=== PATIENT | male | born 1935 | race Caucasian/White ===

== ENCOUNTER 2016-11-27 21:35 | Inpatient (IN) | payer MEDICARE, MEDICAID ==
[2016-11-27] MEDS ORDERED: Albuterol/Ipratropium Neb 3 ML AERS HHN ONE ×2 (21:47→22:01)
--- NOTE | 2016-11-27 21:47 | ED Physician Chart ---
Chief Complaint/HPI - Patient Information Date Seen:: 11/27/16 Time Seen:: 21:41 Chief Complaint:: alt ms History of Present Illness:: pt sent from [place] for generalized weakness //"not feeling well" //decreased fxn.. uti shown on outpt labs. pt admits he has had a cough x 2 months which is prod of some yellow sputum. intermittent fever x weeks. no edema. no cp. no abd p. no ZAMBRANO. no acute neuro change. pt is alert and talking. Allergies:: Allergies Allergy/AdvReac Type Severity Reaction Status Date / Time No Known Allergies Allergy Verified 11/27/16 21:38 Historian:: Patient Review of Systems - Review of Systems General/Constitutional: Fever (??), No fever, No chills, No weight loss, No weakness, No diaphoresis, No edema, No loss of appetite Skin: No skin lesions, No rash, No bruising Head: No headache, No light-headedness Eyes: No loss of vision, No pain, No diplopia ENT: No earache, No nasal drainage, No sore throat, No tinnitus Neck: No neck pain, No swelling, No thyromegaly, No stiffness, No mass noted Cardio Vascular: No chest pain, No palpitations, No PND, No orthopnea, No edema Pulmonary: No SOB, Cough, Sputum, Wheezing GI: No nausea, No vomiting, No diarrhea, No pain, No melena, No hematochezia, No constipation, No hematemesis G/U: Dysuria (?), No dysuria, No frequency, No hematuria Musculoskeletal: No bone or joint pain, No back pain, No muscle pain Endocrine: No polyuria, No polydipsia Psychiatric: No prior psych history, No depression, No anxiety, No suicidal ideation Hematopoietic: No bruising, No lymphadenopathy Allergic/Immuno: No urticaria, No angioedema Neurological: No syncope, No focal symptoms, No weakness, No paresthesia, No headache, No seizure, No dizziness, No confusion, No vertigo Past Medical History - Past Medical History Past Medical History: HTN, DM, CAD, Asthma/COPD, Dyslipidemia, PUD/GERD, Dementia, Other (bph, afib, ckd) Social History: Care Facility Psychiatricy History: Depression, Dementia, Other (anxiety) Medication: Reviewed Family Medical History - Family Member Mother History Unknown: Yes Physical Exam - Physical Examination General/Constitutional: Awake, Well-developed, well-nourished, Alert, No distress, GCS 15, Non-toxic appearing, Ambulatory Other Gen/Cons comments:: alert, talking, nad. not great historian...is disoriented to place. no resp distress. alert/nontoxic. no brandi neuro defecit. abd nt. audible junky intermittent cough. no sob at rest. nonlabored breathing. no edema. Head: Atraumatic Eyes: Lids, conjuctiva normal, PERRL, EOMI Skin: Nl inspection, No rash, No skin lesions, No ecchymosis, Well hydrated, No lymphadenopathy ENMT: External ears, nose nl, Nasal exam nl, Lips, teeth, gums nl Neck: Nontender, Full ROM w/o pain, No JVD, No nuchal rigidity, No bruit, No mass, No stridor Respiratory: Nl effort/Exclusion, Clear to Auscultation, No Wheeze/Rhonchi/Rales Other Respiratory comments:: ronchi. cough. mild wheeze. Cardio Vascular: RRR, No murmur, gallop, rubs, NL S1 S2 GI: No tenderness/rebounding/guarding, No organomegaly, No hernia, Normal BS's, Nondistended, No mass/bruits, No McBurney tenderness : No CVA tenderness Extremities: No tenderness or effusion, Full ROM, normal strength in all extremities, No edema, Normal digits & nails Neuro/Psych: Alert/oriented, DTR's symmetric, Normal sensory exam, Normal motor strength, Judgement/insight normal, Mood normal, Normal gait, No focal deficits Misc: normal gait, Normal back, No paraspinal tenderness Labs/Radiology/EKG Results - Lab Results Results: Laboratory Tests 11/27/16 11/27/16 11/27/16 21:59 21:59 21:59 WBC 10.1 RBC 4.45 Hgb 13.5 Hct 40.2 MCV 90.5 MCH 30.3 MCHC Differential 33.5 RDW 13.0 Plt Count 227 MPV 6.8 Neutrophils % 68.6 Lymphocytes % 21.9 Monocytes % 3.3 Eosinophils % 5.8 H Basophils % 0.4 Sodium 136 Potassium 3.9 Chloride 105 Carbon Dioxide 26.6 Anion Gap 8.3 BUN 18 Creatinine 1.9 H Est GFR ( Amer) TNP Est GFR (Non-Af Amer) TNP BUN/Creatinine Ratio 9.5 Glucose 248 H Whole Bld Lactic Acid 1.15 Calcium 8.9 Total Bilirubin 0.4 AST 12 L ALT 3 L Alkaline Phosphatase 78 Troponin I Total Protein 6.4 Albumin 3.0 L Globulin 3.4 Albumin/Globulin Ratio 0.9 L Urine Source Urine Color Urine Clarity Urine pH Ur Specific [place] Urine Protein Urine Glucose (UA) Urine Ketones Urine Blood Urine Nitrate Urine Bilirubin Urine Urobilinogen Ur Leukocyte Esterase Urine RBC Urine WBC Ur Epithelial Cells Urine Bacteria 11/27/16 11/27/16 21:59 22:15 WBC RBC Hgb Hct MCV MCH MCHC Differential RDW Plt Count MPV Neutrophils % Lymphocytes % Monocytes % Eosinophils % Basophils % Sodium Potassium Chloride Carbon Dioxide Anion Gap BUN Creatinine Est GFR ( Amer) Est GFR (Non-Af Amer) BUN/Creatinine Ratio Glucose Whole Bld Lactic Acid Calcium Total Bilirubin AST ALT Alkaline Phosphatase Troponin I 0.05 Total Protein Albumin Globulin Albumin/Globulin Ratio Urine Source CLEAN C Urine Color YELLOW Urine Clarity SLIGHT CLOUDY Urine pH 6.5 Ur Specific [place] 1.020 Urine Protein >=300 Urine Glucose (UA) 250 H Urine Ketones NEGATIVE Urine Blood MODERATE H Urine Nitrate NEGATIVE Urine Bilirubin NEGATIVE Urine Urobilinogen 0.2 Ur Leukocyte Esterase NEGATIVE Urine RBC 2-5 H Urine WBC 10-25 H Ur Epithelial Cells MODERATE Urine Bacteria MODERATE - Radiology Results Results: cxr nad- left base is indistinct..could represent fat pad or infiltrate - EKG Interpretations EKG Time:: 21:50 Rate & Rhythm: nsr 67 [place]: 84 Intervals: qtc 486 Comments:: rt bbb, long pr interval ..1st deg hrt block ED Septic Shock - . Is Septic Shock (SBP<90, OR Lactate>4 mmol\\L) present?: No Reassessment (Disposition) - Reassessment Reassessment:: call placed to PMD SABINE Coffey at 10;56pm case efraín Coffey at 11pm..is admitting. pt stable. levaquin agreed ok. u cx ordered. cxr efraín alexander pt cough has improved markedly s/p neb tx Reassessment Condition:: Improved - Diagnosis Diagnosis:: 1 failure to thrive 2 uti 3 possible pneumonia - Patient Disposition Admitted to:: Med/Surg Condition at Disposition:: Improved
[2016-11-27 22:07] LABS: % BASOPHILS 0.4 % (0.0-2.0); % EOSINOPHILS 5.8 % (0.0-5.0); % LYMPHOCYTES 21.9 % (20.0-50.0); % MONOCYTES 3.3 % (2.0-10.0); % NEUTROPHILS 68.6 % (40.0-80.0); HEMATOCRIT 40.2 % (39.0-49.0); HEMOGLOBIN 13.5 gm/dL (12.6-17.4); MEAN CELL VOLUME 90.5 fl (80-99); MEAN CORPUSCULAR HEMOGLOBIN 30.3 pg (27.0-31.0); MEAN CORPUSCULAR HGB CONC 33.5 pg (28.0-36.0); MEAN PLATELET VOLUME 6.8 fl; PLATELET COUNT 227 Th/cmm (150-400); RED BLOOD COUNT 4.45 Mil/cmm (3.80-5.80); WHITE BLOOD COUNT 10.1 Th/cmm (4.8-10.8)
[2016-11-27 22:29] LABS: POTASSIUM SERUM 3.9 mEq/L (3.5-5.1); SODIUM SERUM 136 mEq/L (136-145)
[2016-11-27 22:30] LABS: ALB/GLOB RATIO 0.9 (1.0-1.8); ANION GAP 8.3 (7.0-16.0); BILIRUBIN,TOTAL 0.4 mg/dL (0.3-1.0); BUN - UREA NITROGEN 18 mg/dL (7-25); BUN/CREATININE RATIO 9.5; CALCIUM SERUM 8.9 mg/dL (8.6-10.3); CARBON DIOXIDE 26.6 mEq/L (21.0-31.0); CHLORIDE 105 mEq/L (98-107); CREATININE - SERUM 1.9 mg/dL (0.7-1.3); GLUCOSE 248 mg/dL (70-105); SGOT 12 U/L (13-39)
[2016-11-27 22:31] LABS: ALKALINE PHOSPHATASE 78 U/L (34-104); SGPT/ALT 3 U/L (7-52)
[2016-11-27 22:49] LABS: URINE BILIRUBIN NEGATIVE (NEGATIVE); URINE BLOOD MODERATE (NEGATIVE); URINE GLUCOSE (UA) 250 mg/dL (NEGATIVE); URINE KETONE NEGATIVE (NEGATIVE); URINE PH 6.5 (4.6 - 8.0); URINE PROTEIN >=300 mg/dL (NEGATIVE); URINE UROBILINOGEN 0.2 E.U./dL (0.2 - 1.0)
[2016-11-27 22:52] LABS: URINE COLOR YELLOW
[2016-11-27 22:53] LABS: URINE BACTERIA MODERATE /hpf (NONE SEEN); URINE EPITHELIAL CELLS MODERATE /lpf (FEW)
[2016-11-27] MEDS ORDERED: Levofloxacin 500mg/100mL 500 MG/100 ML BAG IV ONE ×2 (22:59→23:10)
[2016-11-27] MEDS ORDERED: Sodium Chloride 0.9% 1,000 ML IV SCH (23:10)
[2016-11-28 03:11] VITALS: BP 148/80
[2016-11-28 06:19] LABS: % BASOPHILS 0.5 % (0.0-2.0); % EOSINOPHILS 6.7 % (0.0-5.0); % LYMPHOCYTES 20.1 % (20.0-50.0); % MONOCYTES 6.8 % (2.0-10.0); % NEUTROPHILS 65.9 % (40.0-80.0); HEMOGLOBIN 13.3 gm/dL (12.6-17.4); MEAN CORPUSCULAR HEMOGLOBIN 30.5 pg (27.0-31.0); MEAN CORPUSCULAR HGB CONC 34.2 pg (28.0-36.0); NEUTROPHILE ABSOLUTE 5.3 Th/cmm (1.8-8.0); PLATELET COUNT 212 Th/cmm (150-400); RED BLOOD COUNT 4.38 Mil/cmm (3.80-5.80); RED CELL DISTRIBUTION WIDTH 13.1 % (11.5-20.0)
[2016-11-28 06:20] LABS: WHITE BLOOD COUNT 7.9 Th/cmm (4.8-10.8)
[2016-11-28 06:31] LABS: ALB/GLOB RATIO 0.9 (1.0-1.8); ALKALINE PHOSPHATASE 78 U/L (34-104); ANION GAP 8.8 (7.0-16.0); BILIRUBIN,TOTAL 0.4 mg/dL (0.3-1.0); BUN - UREA NITROGEN 16 mg/dL (7-25); BUN/CREATININE RATIO 8.9; CALCIUM SERUM 8.9 mg/dL (8.6-10.3); CARBON DIOXIDE 28.1 mEq/L (21.0-31.0); CHLORIDE 104 mEq/L (98-107); CHOLESTEROL 144 mg/dL (<200); CREATININE - SERUM 1.8 mg/dL (0.7-1.3); GLUCOSE 323 mg/dL (70-105); POTASSIUM SERUM 3.9 mEq/L (3.5-5.1); SGOT 12 U/L (13-39); SGPT/ALT 3 U/L (7-52); SODIUM SERUM 137 mEq/L (136-145); TRIGLYCERIDES 212 mg/dL (<150)
[2016-11-28] MEDS: Albuterol/Ipratropium Neb 3 ML AERS HHN PRN ×3 (07:33→19:23)
[2016-11-28] MEDS: INSULIN ASPART SLIDING SCALE 100 UNITS/ML UNIT SUBQ SCH ×4 (08:00→20:56)
--- NOTE | 2016-11-28 08:42 | Diagnostic Imaging Report ---
Portable chest x-ray HISTORY: Cough The heart is enlarged. Atherosclerotic calcification seen in the aorta. There is a degree of pulmonary vascular redistribution that may reflect marginal cardiac decompensation. Slight haziness of the interstitial markings may reflect mild edema. No pleural fluid is evident. Degenerative changes seen to the spine. IMPRESSION: 1. Cardiomegaly with atherosclerotic vascular changes along with findings suggesting a mild degree of congestive heart failure. Clinical correlation is needed.
[2016-11-28] MEDS ORDERED: Magnesium Hydroxide (MOM) 30 mL UDC PO PRN (09:25)
[2016-11-28] MEDS ORDERED: Fleet Enema 135 mL RC PRN (09:25)
[2016-11-28] MEDS ORDERED: Albuterol/Ipratropium Neb 3 ML AERS HHN PRN (09:25)
[2016-11-28] MEDS ORDERED: Sodium Chloride 0.9% 1,000 ML IV SCH ×2 (09:35→09:47)
--- NOTE | 2016-11-28 11:51 | History & Physical ---
ADMIT DATE: 11/28/2016 REASON FOR ADMISSION: Urinary tract infection and pneumonia in this elderly gentlemen with a multitude of problems including BPH, dementia, arthritis, chronic pain syndrome, allergic rhinitis, diabetes, uncontrolled type 2, hypertension, atherosclerotic heart disease, hyperlipidemia. HISTORY OF PRESENT ILLNESS: An 81-year-old gentleman, resident of [facility], complaining of getting sick for past 3-4 weeks, mainly the cough, postnasal drip type of symptoms, but feeling quite sick and increasing pain in his both hands and pointing more on the right hand and feels neck pain, "I feel my neck is broken", also complaining of both foot pain. Upon presentation to the Emergency Room, the patient found to have creatinine of 1.9 with elevated glucose of 248 to 323 range with A1c of 9.7. Urinalysis revealed glucose 4+, ketones negative, and wbc's 10-25, rbc's 2-5, epithelial cells moderate. The patient had a chest x-ray which revealed question of pneumonia in the left base. The patient also complaining of cough with shortness of breath and denies any leg swelling or joint swelling. No rashes. Denies any burning in the extremities. The patient does have frequent fall history. ALLERGIES: None. PAST MEDICAL HISTORY: As mentioned above. MEDICATIONS: At the longterm facility includes ibuprofen 400 q. 8, acetaminophen 650 q. 6 p.r.n., tramadol 50 q. 6 p.r.n., DuoNeb handheld nebulizer q. 6 p.r.n., Norvasc 10 mg once a day, Lipitor 20 mg once a day, vitamin D 5000 units once a day, clonidine 0.1 mg q. 8 hours, Benadryl 25 q. 4 p.r.n., Colace 250 mg once a day, Fleets Enema every other day p.r.n., Neurontin 100 mg 3 times a day, Levemir 30 units subQ once a day, Accu-Chek sliding scale a.c. and at bedtime, Antivert 25 mg t.i.d. p.r.n., Maalox 30 mL q.i.d. p.r.n., milk of magnesia 30 mL at bedtime, Zantac 150 twice a day, Flomax 0.4 mg once a day, glucagon injection p.r.n. for hypoglycemia. SOCIAL HISTORY: No smoking. No alcohol. No substance abuse. FAMILY HISTORY: Noncontributory. REVIEW OF SYSTEMS: See the history of presenting illness. PHYSICAL EXAMINATION: VITAL SIGNS: Blood pressure is 147/59, pulse 64, respiratory rate is 17, and oxygen saturation 98%, temperature 98.4, height 1.8 m, weight 89.4 kg, BMI 27.5. HEENT: The patient's left eye is dry and ____ closed, but with help is able to open very easily, no conjunctivitis noted, pupils are equal. Mucosa is dry. NECK: Short and thick, currently on 2 L oxygen. LUNGS: Decreased air entry all over, but no rales or rhonchi.. CARDIOVASCULAR: S1, S2 normal limit. ABDOMEN: Soft, scaphoid and obese, no hepatosplenomegaly. No rebound, no guarding. No free fluid. No CVA tenderness. EXTREMITIES: Dorsalis pedis palpable. Capillary refill 2 seconds, onychomycosis noted on the big toes. No leg edema noted. CENTRAL NERVOUS SYSTEM: The patient's balance is poor, but cranial nerves intact, otherwise nonfocal. Able to move all extremities without difficulties. MUSCULOSKELETAL: No clubbing, cyanosis, or synovitis. LABORATORY TESTS: Significant for WBC on admission 10,000, repeat one is 7.9, hemoglobin is 13.3, MCV 89, platelet count of 212,000, and neutrophils of 65. Sodium 137, potassium 3.9, chloride 104, bicarb 28, BUN 16, creatinine 1.8, and glucose of 323, calcium level 8.9. Liver panel is essentially unremarkable. Troponin is negative on admission and cholesterol 144, HDL 36, LDL 81, and triglyceride is 212. TSH normal at 1.72, A1c elevated at 9.7. Urinalysis, pH 6.5, specific gravity 1.020, protein 4+, glucose, 4+ ketones negative, blood moderate, wbc's at 10-25, rbc's 2-5. Chest x-ray, cardiomegaly with atherosclerotic vascular changes along the vasculature, mild degree of congestive heart failure is noted. ASSESSMENT AND PLAN: 1. Urinary tract infection. 2. Pneumonia. 3. Congestive heart failure. 4. Hypertension. 5. Atherosclerotic heart disease. 6. Benign prostatic hyperplasia. 7. Hyperlipidemia. 8. Degenerative joint disease. 9. Chronic pain. 10. Benign prostatic hyperplasia with urinary incontinence. 11. Multiple falls. 12. Alzheimer's dementia. 13. Uncontrolled insulin-dependent diabetes mellitus, type 2. 14. Chronic kidney disease, stage III. PLAN: Do workup including CT chest, x-rays of the hand, C-spine, feet, and ultrasound of the kidney and bladder and continue with Levaquin. Monitor culture and adjust antibiotics. Fall precaution, PT eval. Echocardiogram, Cardiology consult. IV fluid as the patient ____ clinically and repeat chest x-rays if cough not improve. Continue hand held nebulizer and the patient's current medications from the home. See order for full detail. JOB# [id number]
[2016-11-28] MEDS ORDERED: Guaifenesin DM 10 ML UDC PO PRN (12:37)
--- NOTE | 2016-11-28 14:53 | Diagnostic Imaging Report ---
Right foot (3 views) HISTORY: Pain No definite acute bony abnormalities are seen. No definite fractures. Mild degenerative changes noted about the first metatarsal phalangeal joint. Surgical hardware noted within the distal fibula and tibia. Vascular calcification noted. IMPRESSION: 1. No definite acute bony abnormalities 2. Degenerative changes 3. Surgical changes In the presence of recent trauma and persistent symptoms, a repeat radiograph in 5-7 days may be helpful for detection of a subtle or occult fracture.
--- NOTE | 2016-11-28 14:54 | Diagnostic Imaging Report ---
Left foot (3 views, portable) HISTORY: Pain No acute bony abnormalities are seen. No fractures. Spur formation noted off the dorsal aspect of the posterior calcaneus. IMPRESSION: 1. No acute abnormalities. In the presence of recent trauma and persistent symptoms, a repeat radiograph in 5-7 days may be helpful for detection of a subtle or occult fracture.
--- NOTE | 2016-11-28 15:02 | Diagnostic Imaging Report ---
Left hand (3 views, portable) HISTORY: Pain There is narrowing of all DIP and PIP joints. No acute abnormalities. No fractures. IMPRESSION: 1. No acute abnormalities 2. Degenerative joint disease In the presence of recent trauma and persistent symptoms, a repeat radiograph in 5-7 days may be helpful for detection of a subtle or occult fracture.
--- NOTE | 2016-11-28 15:02 | Diagnostic Imaging Report ---
Right hand (3 views) HISTORY: Pain There is narrowing of all DIP and PIP joints. Degenerative changes with narrowing hypertrophic bone formation noted about the first carpal metacarpal joint region. Narrowing of the radiocarpal joint space. No acute abnormalities. No fractures. IMPRESSION: 1. No acute abnormalities 2. Degenerative joint disease In the presence of recent trauma and persistent symptoms, a repeat radiograph in 5-7 days may be helpful for detection of a subtle or occult fracture.
--- NOTE | 2016-11-28 15:07 | Diagnostic Imaging Report ---
CT scan of the chest without intravenous contrast HISTORY: Cough, shortness of breath Total DLP equals 236 CTDI equals 5.8 Axial sections were obtained from a level above the clavicles down to level below the diaphragm. The heart size appears to be within normal limits. Severe dense coronary artery calcification noted. Additional atherosclerotic calcification seen in the aorta. There is a small left pleural effusion. Normal-sized lymph nodes are seen within the mediastinum. Evaluation of the hilar structures is limited due to the absence of intravenous contrast. No definite abnormal masses. There is generalized accentuation of the interstitial markings throughout the left lung. Findings are more pronounced within the left lower lobe. Etiology uncertain. Mild peribronchial thickening is seen bilaterally. Degenerative changes noted in the spine. IMPRESSION: 1. Small left pleural effusion 2. Generalized accentuation of the interstitial markings throughout the left lung somewhat more pronounced within the lower lobe. Exact etiology is uncertain. Additional mild bilateral peribronchial thickening also noted. Inflammatory change cannot be excluded. 3. Evidence of severe dense coronary artery calcification along with atherosclerotic calcification within the thoracic aorta.
--- NOTE | 2016-11-28 15:09 | Diagnostic Imaging Report ---
CT scan cervical spine HISTORY: Pain Total DLP equals 731 CTDI equals 27.5 Axial sections were obtained through the cervical spine. Additional sagittal and coronal reformatted images are provided. The exam demonstrates diffuse degenerative changes with hypertrophic spur formation noted about the endplates of all vertebrae. Findings somewhat more pronounced at C5-6, C6-7, and C7-T1. Additional bridging osteophyte formation noted along the anterior margins of the bodies of T2 and T3. Spur formation results in a mild to moderate extradural indentation on the anterior spinal canal at C5-6. Smaller extradural indentation related to spur formation noted at C3-4. There is narrowing of the C5-6, C6-7, and C7-T1 disc spaces. Bilateral neural foramina encroachment at multiple levels related to hypertrophic bone formation. Atherosclerotic calcification noted in the carotid arteries. Atherosclerotic calcification also noted in the region of the vertebral and basilar arteries at the base of the skull. IMPRESSION: 1. Moderate to severe diffuse degenerative changes 2. No acute abnormalities 3. Atherosclerotic vascular changes
--- NOTE | 2016-11-28 15:17 | Diagnostic Imaging Report ---
Renal ultrasound HISTORY: Urinary tract infection, abnormal renal function The right kidney measures 9.9 x 5.5 x 5.9 cm. There is a 1.4 x 1.3 x 1.6 cm sonolucent lesion seen in the upper cortex consistent with a cyst. A 2.4 x 2.1 x 2.8 cm sonolucent lesion is seen in the lower pole also consistent with a cyst. No hydronephrosis. The left kidney is normal in size (9.6 x 6.2 x 5.6 cm). A 1.6 cm sonolucent lesion is seen in the upper pole consistent with a cyst. No hydronephrosis. No intraluminal abnormality seen within the urinary bladder. The prostate gland cannot be clearly delineated. IMPRESSION: 1. Findings consistent with bilateral renal cysts 2. No hydronephrosis 3. Incomplete visualization of the prostate gland
--- NOTE | 2016-11-28 15:46 | Cardiology ---
11/28/[address] Franck Coffey. M-MODE ECHOCARDIOGRAM: Mitral valve, anterior leaflet of mitral valve shows normal excursion, EF velocity. Posterior leaflet the mitral valve shows normal excursion. Left ventricular posterior wall shows increased thickness, normal excursion. Interventricular septum shows increased thickness, normal excursion, hypertrophy of the left ventricle, ejection fraction 55%. Left atrium enlarged 4.7 cm. Aortic root shows normal dimension, normal excursion of aortic leaflets. CONCLUSION: Left atrial enlargement. Hypertrophy of the left ventricle, ejection fraction 55%. 2D ECHO: Long axis view showed normal sized left ventricle with hypertrophy of the left ventricle. Left atrium enlarged. Aortic root shows normal dimension, normal excursion of aortic leaflets. Short axis view of mitral valve normal. Short axis view of aortic valve normal. Apical four chamber view shows normal sized left ventricle with hypertrophy of the left ventricle. Left atrium enlarged. Right ventricular cavity, right atrium normal, no pericardial effusion. CONCLUSION: Hypertrophy of the left ventricle. Left atrial enlargement. Ejection fraction 55%. Doppler study shows prominent area consistent with poor compliance of left ventricle, mild aortic regurgitation, mild mitral regurgitation. JOB# [id number]
[2016-11-28] MEDS: Atorvastatin Calcium 10 MG TAB PO SCH (20:54)
[2016-11-28] MEDS: Insulin Detemir 100 units/mL 10mL Vial SUBQ SCH (20:56)
[2016-11-28] MEDS: Levofloxacin 500mg/100mL 500 MG/100 ML BAG IV SCH (23:35)
--- NOTE | 2016-11-29 04:05 | Admit Criteria Form ---
Admit Criteria Forms - Admit Criteria Diagnosis: PNEUMONIA, COMMUNITY ACQUIRED Clinical Indications for Admission to Inpatient Care (Place ' X' for any and all applicable criteria): Admission to inpatient status for two midnights or more is indicated for ANY ONE of the following (1)(2)(3): [ ]I. Hypoxia [ ]II. Hemodynamic instability [ ]III. Altered mental status that is severe or persistent [ ]IV. Dehydration that is severe or persistent. [ ]V. Bacteremia [X ]. Moderate-risk or high-risk category patients (Pneumonia Severity Index ( PSI) class IV or V, or CURB-65 score of 3 or greater). [ ]VII. Intermediate-risk category patients (e.g., PSI class III or CURB-65 score 2) who do not improve with outpatient and observation care treatment [ ]VIII. Outpatient treatment failure as indicated by 1 or more of the following(9): [ ]a) Failure to respond to antibiotic (eg, resistant organism) [ ]b) Clinically significant adverse effects from medication (eg, vomiting) [ ]c) Complications of pneumonia (eg, empyema, bacteremia) [ ]d) Significant worsening of comorbid cond necessitating inpatient care (eg, chronic heart failure) [ ]IX. Appropriate diagnostic testing and treatment unavailable in outpatient or recovery facility (eg, testing or infection control measures unavailable) [ ]X. Respiratory finding (eg. tachypnea) that do not respond to outpatient observation care treatment [ ]XI. Complicated pleural effusions (eg, emphysema, exudative, loculated) [ ]XII. Immunocompromised patients (e.g., AIDS, chronic steroid use) at moderate or high risk based on clinical evaluation. Extended stay beyond goal length of stay may be needed for (20) [ ]a) Unclear diagnosis [ ]b) Pleural disease [ ]c) Severe pneumonia or treatment failure [ ]d) Respiratory failure [ ]e) New onset hyponatremia (serum Na concentration less than 135 mEq/L(mmol/ L) [ ]f) Clinically significant comorbid illness (eg, heart failure, atrial fibrillation with rapid heart rate, alcohol withdrawal, renal insufficiency)(34)(35) [ ]g) Comorbid acute exacerbation of COPD(36) [ ]h) Concomitant diagnosis of malignancy [ ]i) Concomitant altered mental status [ ]j) Culture-identified Gram-negative or antibiotic-resistant organism (eg, Pseudomonas, methicillin-resistant Staphylococcus aureus MRSA)(30) [ ]k) Healthcare-associated pneumonia (36) The original [facility] [email or web address] content created by [facility] has been revised. The portions of the content which have been revised are identified through the use of italic text or in bold, and [facility] has neither reviewed nor approved the modified material. All other unmodified content is copyright [facility]. Please see references footnoted in the original [email or web address] edition 2017 Admit Criteria Met?: Yes
[2016-11-29 06:36] LABS: % BASOPHILS 0.3 % (0.0-2.0); % EOSINOPHILS 6.6 % (0.0-5.0); % LYMPHOCYTES 18.1 % (20.0-50.0); % MONOCYTES 4.6 % (2.0-10.0); % NEUTROPHILS 70.4 % (40.0-80.0); HEMATOCRIT 38.5 % (39.0-49.0); HEMOGLOBIN 13.4 gm/dL (12.6-17.4); MEAN CELL VOLUME 88.7 fl (80-99); MEAN CORPUSCULAR HEMOGLOBIN 30.9 pg (27.0-31.0); MEAN CORPUSCULAR HGB CONC 34.8 pg (28.0-36.0); MEAN PLATELET VOLUME 6.4 fl; NEUTROPHILE ABSOLUTE 6.1 Th/cmm (1.8-8.0); PLATELET COUNT 205 Th/cmm (150-400); RED BLOOD COUNT 4.33 Mil/cmm (3.80-5.80); RED CELL DISTRIBUTION WIDTH 13.2 % (11.5-20.0); WHITE BLOOD COUNT 8.7 Th/cmm (4.8-10.8)
[2016-11-29] MEDS: INSULIN ASPART SLIDING SCALE 100 UNITS/ML UNIT SUBQ SCH ×4 (07:09→21:13)
[2016-11-29 07:44] LABS: ALB/GLOB RATIO 0.9 (1.0-1.8); ALKALINE PHOSPHATASE 68 U/L (34-104); ANION GAP 9.6 (7.0-16.0); BILIRUBIN,TOTAL 0.5 mg/dL (0.3-1.0); BUN - UREA NITROGEN 20 mg/dL (7-25); BUN/CREATININE RATIO 11.1; CALCIUM SERUM 8.8 mg/dL (8.6-10.3); CARBON DIOXIDE 25.2 mEq/L (21.0-31.0); CHLORIDE 106 mEq/L (98-107); CREATININE - SERUM 1.8 mg/dL (0.7-1.3); GLUCOSE 114 mg/dL (70-105); POTASSIUM SERUM 3.8 mEq/L (3.5-5.1); SGOT 13 U/L (13-39); SGPT/ALT 4 U/L (7-52); SODIUM SERUM 137 mEq/L (136-145); URIC ACID 5.5 mg/dL (4.4-7.6)
[2016-11-29] MEDS ORDERED: Pneumococcal Vaccine 0.5 mL Vial IM ONE (09:00)
[2016-11-29] MEDS: Multivitamin w/ Minerals Tab PO SCH (09:38)
[2016-11-29] MEDS: INSULIN ASPART, RECOMBINANT 100 UNITS/ML SUBQ SCH ×3 (09:39→18:29)
[2016-11-29] MEDS: Albuterol/Ipratropium Neb 3 ML AERS HHN PRN (12:56)
[2016-11-29] MEDS: methylPREDNISolone SS 40 mg Vial IV SCH ×2 (14:54→21:14)
[2016-11-29] MEDS: Pantoprazole 40 mg/Packet PO SCH (14:55)
[2016-11-29] MEDS: Albuterol/Ipratropium Neb 3 ML AERS HHN SCH ×2 (17:04→19:12)
[2016-11-29] MEDS ORDERED: VTE Chemical Prophylaxis Screen/Admission MC PRN (18:55)
[2016-11-29] MEDS: Budesonide 0.5 Mg/2 mL Ud HHN SCH (19:13)
[2016-11-29] MEDS: Atorvastatin Calcium 10 MG TAB PO SCH (21:14)
[2016-11-29] MEDS: Insulin Detemir 100 units/mL 10mL Vial SUBQ SCH (21:23)
--- NOTE | 2016-11-29 23:31 | Consultation ---
DATE OF CONSULTATION: 11/29/2016 PULMONARY CONSULTATION/SLEEP MEDICINE CONSULTATION REASON FOR CONSULTATION: Possibly pneumonia, UTI. CONSULT NOTE: This is an 81-year-old gentleman who lives in a local convalescent home, has multiple medical problems of history of diabetes mellitus, allergic rhinitis, chronic pain syndrome, osteoarthritis, dementia, BPH, as well as atherosclerotic heart disease and dyslipoproteinemia. He presents up here for 2-3 weeks of some coughing, some sputum production and some discolored sputum with some shortness of breath. Subsequently, he started having some more aches and pains all over the body. Subsequently, the patient came to the hospital Emergency Room for further care and necessary treatment. The patient denied any pleuritic chest pain. He did complain of some wheezing. He is basically mostly wheelchair ridden. Denied any post-sinus dribbling, etc. Denied any fever or chills prior to coming to the hospital. PAST MEDICAL HISTORY: ALLERGIC HISTORY: Nil. MEDICATIONS: The patient has medications, multiple, which include breathing treatment, pain medication, antihypertensive medication including insulin. SOCIAL HISTORY: Smoking history: More than [id number] smoker, has not smoked for the last couple of years FAMILY HISTORY: Noncontributory. PHYSICAL EXAMINATION: GENERAL: This is an elderly looking gentleman, awake, not in any acute distress, short stature. VITAL SIGNS: The patient's recorded vitals: Temperature is 98, respiration is about 12 and heart rate is in 80s and patient's saturation is 96% on supplemental oxygen. HEENT: Examination of the head is essentially unremarkable. Pupils appear to be equal and reacting to light. Conjunctivae are slightly pallor. Oral cavity shows edentulous with a small oropharyngeal opening and throat could not be seen well. No nodes in the neck could be palpated. CHEST: Scattered secretory noise with diminished air entry. HEART: Regular, distant. ABDOMEN: Soft, nontender. EXTREMITIES: Poor pulsations. No cyanosis or clubbing. LABORATORY DATA: The patient's chest x-ray not done. CT of the chest shows bilateral interstitial infiltrate, very patchy, more on the left basal area than the right. The patient's white count is 8.17, hemoglobin is 13.4. The patient's BNP is 263. The patient's electrolytes are okay with creatinine of 1.8. ASSESSMENT/IMPRESSION: 1. The patient has acute exacerbation of bronchial asthma. 2. Underlying interstitial lung disease, exact etiology not clear with this if this is acute or acute on chronic; looks more chronic to us than acute though activity cannot be totally determined based on x-ray. 3. Suspect obstructive sleep apnea syndrome. 4. Suspect associated pain syndrome, on and off for multiple areas. PLANS AND SUGGESTIONS: We will give aggressive inhalation treatment, bronchodilator and limited dose of steroid and await for the cultures to come back; also in the meantime, continue broad-spectrum antibiotics and follow up some of the laboratory back tomorrow again and see how he does and go from there. JOB# [id number]
[2016-11-29] MEDS: Levofloxacin 500mg/100mL 500 MG/100 ML BAG IV SCH (23:39)
[2016-11-30] MEDS: methylPREDNISolone SS 40 mg Vial IV SCH ×2 (04:57→13:35)
[2016-11-30] MEDS ORDERED: INSULIN ASPART, RECOMBINANT 100 UNITS/ML SUBQ ONE (06:38)
[2016-11-30 06:59] LABS: HEMOGLOBIN 14.1 gm/dL (12.6-17.4)
[2016-11-30 07:04] LABS: MEAN CELL VOLUME 88.8 fl (80-99); MEAN CORPUSCULAR HEMOGLOBIN 29.8 pg (27.0-31.0); MEAN CORPUSCULAR HGB CONC 33.5 pg (28.0-36.0); PLATELET COUNT 219 Th/cmm (150-400); RED BLOOD COUNT 4.73 Mil/cmm (3.80-5.80); RED CELL DISTRIBUTION WIDTH 13.1 % (11.5-20.0)
[2016-11-30] MEDS: Albuterol/Ipratropium Neb 3 ML AERS HHN SCH ×2 (07:25→12:04)
[2016-11-30] MEDS: Budesonide 0.5 Mg/2 mL Ud HHN SCH (07:25)
[2016-11-30 07:41] LABS: ALB/GLOB RATIO 0.9 (1.0-1.8); ALKALINE PHOSPHATASE 71 U/L (34-104); BILIRUBIN,TOTAL 0.4 mg/dL (0.3-1.0); BUN - UREA NITROGEN 32 mg/dL (7-25); BUN/CREATININE RATIO 14.5; CALCIUM SERUM 8.6 mg/dL (8.6-10.3); CARBON DIOXIDE 23.7 mEq/L (21.0-31.0); CHLORIDE 102 mEq/L (98-107); CREATININE - SERUM 2.2 mg/dL (0.7-1.3); GLUCOSE 420 mg/dL (70-105); POTASSIUM SERUM 4.7 mEq/L (3.5-5.1); SGOT 13 U/L (13-39); SGPT/ALT 3 U/L (7-52); SODIUM SERUM 133 mEq/L (136-145)
[2016-11-30 07:46] LABS: BILIRUBIN,DIRECT 0.09 mg/dL (0.0-0.2)
[2016-11-30 08:06] LABS: BAND NEUTROPHILE 2 % (0-10); NEUTROPHILS 89 % (40-80); TOTAL CELLS COUNTED 100
[2016-11-30 08:07] LABS: PLATELET ESTIMATE ADEQUATE (NORMAL); PLATELET MORPHOLOGY NORMAL (NORMAL)
[2016-11-30 08:20] LABS: TSH 0.42 uIU/ml (0.34-5.60)
[2016-11-30] MEDS: Multivitamin w/ Minerals Tab PO SCH (09:08)
[2016-11-30] MEDS: Pantoprazole 40 mg/Packet PO SCH (09:08)
[2016-11-30 09:23] LABS: pH 7.55 (7.35-7.45)
[2016-11-30 09:24] LABS: ABG SOURCE Arterial; ALLEN TEST YES; BE(B) 9.4 mEq/L (-3.0-3.0); FIO2 21; HCO3 32.1 mEq/L (20.0-26.0)
--- NOTE | 2016-11-30 09:25 | Diagnostic Imaging Report ---
CHEST X-RAY: AP view INDICATION: Pneumonia COMPARISON: Chest x-ray 11/27/[address] chest on 11/28/2016 FINDINGS: Increased interstitial lung markings are noted. No focal consolidation or pleural effusions. Mild cardiomegaly is noted with atherosclerotic vascular disease. IMPRESSION: Increased initial lung markings most likely sequela of chronic lung changes. The patient's small left effusion seen on recent CT examination of the chest cannot be well identified on this portable chest x-ray. No focal consolidation identified. Mild cardiomegaly with atherosclerosis.
--- NOTE | 2016-11-30 09:30 | Diagnostic Imaging Report ---
Lumbar spine 3 views Indication: pain Comparison: none Findings: No evidence of an acute compression fracture or subluxation. Minimal multilevel chronic vertebral body loss of height is noted. Advanced degenerative changes are seen including multilevel marginal osteophytic spurring and advanced facet degenerative changes. Degenerative changes of dorsal spinous process regions are also noted. There is also mild disc space loss of height extending from L2 to L5. Atherosclerotic vascular disease is noted. IMPRESSION: No evidence of acute compression fracture or subluxation. There is minimal multilevel vertebral body loss of height. Advanced multilevel degenerative changes. Atherosclerotic vascular disease. In the setting of trauma, if clinical symptoms persist and there is continued concern for an occult fracture, follow up exams in 5-7 days is suggested.
--- NOTE | 2016-11-30 12:08 | Discharge Summary ---
DATE OF DISCHARGE: 11/30/2016 FINAL DIAGNOSES: 1. Acute exacerbation of bronchial asthma. 2. Interstitial lung disease, [id number]. 3. Acute tracheobronchitis. 4. Allergic rhinitis. 5. Methicillin-resistant Staphylococcus aureus nares, ____ colonized. 6. Uncontrolled insulin-dependent diabetes mellitus due to recent use of IV steroid for acute exacerbation of asthma. 7. Hypertension with chronic kidney disease, stage III. 8. Atherosclerotic heart disease. 9. Multiple falls, due to multiple etiologies. 10. Dementia. 11. 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 12. Degenerative disk disease, cervical spine with chronic neck pain. 13. Clinically obstructive sleep apnea. 14. Chronic constipation. HOSPITAL COURSE AND IMPORTANT LAB: An 81-year-old gentleman with recent worsening cough for several weeks sent [facility] the [facility] to the [facility] Emergency Room and initially suspected to have pneumonia, also had a UTI on urinalysis. The patient admitted, blood culture remained negative. Urine culture, no growth. Nares culture revealed MRSA, started on Bactroban for it initially. The patient empirically given Levaquin. CT chest ordered, which revealed interstitial lung disease. Pulmonary consult obtained and acute exacerbation of bronchial asthma diagnosed, started on IV Solu-Medrol, which increased the blood sugar to 385 and 410. We will taper the steroid and the patient will go back to the [facility] for ongoing care. We will continue oxygen, handheld nebulizer with DuoNeb and Pulmicort. The patient also complaining of multiple site pain including both hands, both feet, neck and back. The patient had a CT of the neck also which revealed multiple site degenerative disk disease. The patient's creatinine is 1.8 so ultrasound of kidney done which revealed no hydronephrosis, no stone, otherwise unremarkable. The patient had x-ray of the hand and feet, which revealed multiple site DJD. The patient also had a question of venous congestion in the lung, so echocardiogram obtained, which revealed left ventricular hypertrophy, ejection fraction of 55% and mild aortic regurgitation and mild mitral regurgitation and a poor compliance of left ventricle. The patient also had BPH with erectile dysfunction and a previous prostate surgery. The patient is currently on Flomax. We will continue with the same. The patient will go back to the [facility] for ongoing care. [facility]# [id number]
[2016-11-30] MEDS: INSULIN ASPART, RECOMBINANT 100 UNITS/ML SUBQ SCH ×2 (13:40→13:41)
[2016-11-30] MEDS: INSULIN ASPART SLIDING SCALE 100 UNITS/ML UNIT SUBQ SCH (13:41)
[2016-12-01 08:11] LABS: T3 FREE 2.1 pg/mL (2.0-4.4); T4 FREE 1.16 ng/dL (0.82-1.77)
== END 2016-11-30 13:30 | disposition home or self-care (01) | DRG 197 ==
LOC: ER 21:35 → MSI 23:02
PROVIDERS: ADMIT Internal Medicine; ATTEND Internal Medicine
DX: J84.9 Interstitial pulmonary disease, unspecified (principal); I13.0 Hypertensive heart and chronic kidney disease with heart failure and stage 1 through stage 4 chronic kidney disease, or unspecified chronic kidney disease; E11.22 Type 2 diabetes mellitus with diabetic chronic kidney disease; I50.9 Heart failure, unspecified; J45.901 Unspecified asthma with (acute) exacerbation; K21.9 Gastro-esophageal reflux disease without esophagitis; N39.0 Urinary tract infection, site not specified; G30.9 Alzheimer's disease, unspecified; F02.80 Dementia in other diseases classified elsewhere, unspecified severity, without behavioral disturbance, psychotic disturbance, mood disturbance, and anxiety; I25.10 Atherosclerotic heart disease of native coronary artery without angina pectoris; E78.5 Hyperlipidemia, unspecified; N40.1 Benign prostatic hyperplasia with lower urinary tract symptoms; N39.498 Other specified urinary incontinence; N18.3 Chronic kidney disease, stage 3 (moderate); R62.7 Adult failure to thrive; I48.91 Unspecified atrial fibrillation; F32.9 Major depressive disorder, single episode, unspecified; F41.9 Anxiety disorder, unspecified; G89.4 Chronic pain syndrome; J30.9 Allergic rhinitis, unspecified; K59.09 Other constipation; M19.072 Primary osteoarthritis, left ankle and foot; M19.071 Primary osteoarthritis, right ankle and foot; J20.9 Acute bronchitis, unspecified; M50.30 Other cervical disc degeneration, unspecified cervical region; M19.049 Primary osteoarthritis, unspecified hand; G47.33 Obstructive sleep apnea (adult) (pediatric); K59.00 Constipation, unspecified; I08.0 Rheumatic disorders of both mitral and aortic valves; Z91.81 History of falling; Z79.4 Long term (current) use of insulin; Z22.322 Carrier or suspected carrier of Methicillin resistant Staphylococcus aureus
CPT/HCPCS: 36415-UA; 36600-90; 71010-TC; 71250-TC; 72100-TC; 72125-TC; 73130-TC-LT; 73130-TC-RT; 73630-TC-LT; 73630-TC-RT; 76770-TC; 80053-TC; 80061-TC; 81001-TC; 82140-TC; 82248-TC; 82803-TC; 82947-TC; 82948-90; 83036-90; 83605; 83735-TC; 83880-TC; 84439-90; 84443-TC; 84479-90; 84484-TC; 84550-TC; 85007-TC; 85025-TC; 85027-TC; 87070; 87086-90; 93005; 94640; 94760; 96374; 97530; J1815; J1956; J2060; J2920; J7030; X3904; Z7610